=== PATIENT | male | born 1995 | race Caucasian/White ===

== ENCOUNTER 2018-02-06 21:59 | Emergency (ER) | payer OTHER, SELFPAY ==
[2018-02-06 22:00] VITALS: BP 157/89; PULSE 110; RESP 20; TEMP 37; O2SAT 98; BMI 32.3
--- NOTE | 2018-02-06 22:08 | ED.VISSUMM ---
- ER Visit Summary Date of Service: 02/06/18 Chief Complaint: Right wrist injury History of Present Illness: The patient is a 22 M mechanical fall at 1930 at home. No head injuries. Slipped on ice. No paresthesias. Pain in the wrist. 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 Does not currently follow an orthopedist. Took extra strength pain reliever at home. No other injuries. No past med history. Physical Examination: General: Alert and oriented ?3, no acute distress HEENT: Normocephalic, atraumatic. Moist mucosa membranes Neck: supple, nontender. Cardiovascular: Regular rate and rhythm, no murmurs Respiratory: Normal breath sounds, symmetric, no distress Abdomen: Soft, nontender, nondistended Extremities: Right upper extremity: No elbow pain. Wrist examination no styloid tenderness. There is tenderness at the snuffbox and swelling. No hand swelling. No deformities. Skin intact. Neuro: no focal neurological deficits. Test Results: Right wrist x-ray: Transverse fracture mid scaphoid Emergency Department Course and Treatment: Ice was placed. Patient declined any additional pain medications. X-ray of obtained notes transverse fracture across the scaphoid. Patient is placed in a thumb spica Ortho-Glass splint. Discussed with patient importance of follow-up with orthopedist for evaluation. Patient states to discontinue Tylenol at home. He is given follow-up instructions. Treatment Plan: [] Disposition: Discharge Impression: Closed right scaphoid fracture This note was generated with [employer] dictation software. It may contain incorrect words, spelling, and punctuation that were not noted in review of the chart prior to signing ED Disposition - Plan for ED Patient: Disposition: Home or Assisted Living Chief Complaint: Upper Extremity Injury Diagnosis: Wrist fracture, closed Instructions: ED Fx Wrist Navicular Conf Referrals: NOT,DEFINED [Primary Care Provider] - Elmer Saunders DO [STAFF PHYSICIAN] - 3-5 Days Additional Instructions: transverse fracture of scaphoid wrist bone
--- NOTE | 2018-02-06 22:15 | RAD_ITS ---
STUDY: X-RAY - RIGHT WRIST REASON FOR EXAM: Male, 22 years old. Fell and injured right wrist TECHNIQUE: 4 view(s) of the wrist were obtained. COMPARISON: None. FINDINGS: Normal visualized distal radius and ulna. Normal radiocarpal articulation. Normal distal radioulnar articulation. There appears be a nondisplaced fracture through the mid navicular bone. Normal carpal articulations. Normal carpometacarpal articulation of the thumb. Normal second through fifth carpometacarpal articulations. Normal visualized metacarpal bones. The soft tissue structures are unremarkable. RAD/Wrist min 3 Views IMPRESSION: Nondisplaced navicular fracture Electronically Signed: Aung Wiggins MD at 22:46 EST , Service support ,
[2018-02-06 22:45] VITALS: RESP 16
--- NOTE | 2018-02-06 22:45 | ED.RN ---
REVIEWED D/C INSTRUCTIONS, FOLLOW UP CARE, AND S/S THAT WOULD WARRANT A RETURN TO THE ED WITH PT. PT VERBALIZED AN UNDERSTANDING AND DENIES FURTHER QUESTIONS FOR THIS RN. PT SKIN P/W/D, RESP EVEN AND UNLABORED, PT A&O X 3, NO DISTRESS NOTED. PT AMBULATED OUT OF ED, GAIT STEADY.
== END 2018-02-06 22:46 | disposition home or self-care (01) ==
LOC: ED 22:45
PROVIDERS: Emergency Provider Emergency Medicine
DX: S92.251A Displaced fracture of navicular [scaphoid] of right foot, initial encounter for closed fracture (principal); W00.0XXA Fall on same level due to ice and snow, initial encounter; Y93.9 Activity, unspecified; Y92.009 Unspecified place in unspecified non-institutional (private) residence as the place of occurrence of the external cause; Y99.9 Unspecified external cause status; Z89.021 Acquired absence of right finger(s)
CPT/HCPCS: 73110; 99282

== ENCOUNTER → 2018-05-26 14:34 | Outpatient (CLI) | payer OTHER, SELFPAY ==
--- NOTE | 2018-05-26 14:38 | CT_ITS ---
STUDY: CT RIGHT WRIST WITHOUT CONTRAST REASON FOR EXAM: Male, 22 years old. Wrist/scaphoid fracture repair TECHNIQUE: Transaxial CT imaging of the wrist was performed. Sagittal and coronal images were reconstructed. COMPARISON: 4 portable views of the right wrist February 06, 2018. FINDINGS: Normal visualized distal radius and ulna. Mild negative variance of the distal radioulnar articulation. The mid body fracture of the scaphoid is fixed in anatomic alignment by a metal screw passing obliquely across the fracture line. There is no significant callus formation. Normal remaining carpal bones. Normal radiocarpal, intercarpal and midcarpal articulations. Normal pisotriquetral articulation. Normal carpometacarpal articulation of the thumb. Normal second through fifth carpometacarpal articulations. Normal visualized metacarpal bones. There is mild soft tissue swelling about the wrist. CT/Extremity Upper without Contra IMPRESSION: Mid body scaphoid fracture fixation in anatomic alignment by a single metal screw. No significant callus formation is apparent. There is mild surrounding soft tissue swelling. Electronically Signed: Andi Simpson MD at 18:56 EDT , Service support ,
== END ==
PROVIDERS: Visit Provider Orthopaedic Surgery Hand Surgery
DX: S62.021A Displaced fracture of middle third of navicular [scaphoid] bone of right wrist, initial encounter for closed fracture (principal)
CPT/HCPCS: 73200